=== PATIENT | female | born 1950 | race Caucasian/White ===

== ENCOUNTER 2019-05-02 17:26 | Emergency (ER) | payer MEDICARE, BC ==
[2019-05-02] MEDS ORDERED: Lidocaine 1% with EPINEPHrine 1:100,000 50 ML MDV SUBCUT ONE (18:21)
--- NOTE | 2019-05-02 18:22 | EDM.PDOC ---
ED HPI GENERAL MEDICAL PROBLEM - General Chief Complaint: Skin Complaint Stated Complaint: FELL HURT LEG Time Seen by Provider: 05/02/19 18:22 Source of Information: Reports: Patient, Other (friend) History Limitations: Reports: No Limitations - History of Present Illness INITIAL COMMENTS - FREE TEXT/NARRATIVE: Patient was walking up steps this afternoon around 4:30. Patient caught flip flop on edge of rock steps resulting in fall and laceration left anterior lei. Patient applied ice to area but believes she need sutures. Last tetanus shot was more than 5 years ago. Patient has contusion involving entire anterior lower legs. Superficial abrasion/contusion left anterior knee. Patient has had some pain with ambualtion but denies hip, hip or ankle pain. Patient states majority of pain is left anterior lei. Patient landed on her wrist with superficial contusions/abrasions with out pain with movement of wrist or elbows. - Related Data Allergies Allergy/AdvReac Type Severity Reaction Status Date / Time lisinopril Allergy Respiratory Verified 05/02/19 17:48 Distress sulfite Allergy Respiratory Verified 05/02/19 17:48 Distress Home Meds: Home Meds Fluticasone Furoate [Flonase Sensimist] 2 spray INH DAILY 05/02/19 [History] Losartan [Cozaar] 25 mg PO DAILY 05/02/19 [History] Metoprolol Tartrate 25 mg PO DAILY 05/02/19 [History] Past Medical History HEENT History: Reports: Hard of Hearing, Impaired Vision Cardiovascular History: Reports: High Cholesterol, Hypertension Gastrointestinal History: Reports: Inflammatory Bowel Disease [employer] History: Reports: Musculoskeletal History: Reports: Fracture - Past Surgical History GI Surgical History: Reports: Appendectomy, Cholecystectomy, Colonoscopy, Colostomy, Small Bowel Female Surgical History: Reports: Tubal Ligation Musculoskeletal Surgical History: Reports: Shoulder Surgery Social & Family History - Tobacco Use Smoking Status *Q: Never Smoker - Caffeine Use Caffeine Use: Reports: None - Recreational Drug Use Recreational Drug Use: No ED ROS GENERAL - Review of Systems Review Of Systems: ROS reveals no pertinent complaints other than HPI. ED EXAM, SKIN/RASH Exam: See Below Exam Limited By: No Limitations General Appearance: Alert, WD/WN, Anxious, Mild Distress Eye Exam: Bilateral Eye: EOMI, PERRL Ears: Hearing Grossly Normal Nose: Normal Inspection, Normal Mucosa Throat/Mouth: Normal Inspection, Normal Lips, Normal Voice, No Airway Compromise Head: Normocephalic Neck: Non-Tender, Full Range of Motion Respiratory/Chest: No Respiratory Distress, Lungs Clear, Normal Breath Sounds Cardiovascular: Normal Peripheral Pulses, Regular Rate, Rhythm Extremities: Normal Inspection (dilated veins bilateral legs wtih fairly this overlying skin. 4.5 cm laceration left anterior lei with skin tear noted. SQ fat noted in wound bed sutures needed due to depth of wound), Normal Range of Motion, Non-Tender, No Pedal Edema, Normal Capillary Refill Neurological: Alert, Oriented, CN II-XII Intact, Normal Cognition, Normal Gait, Normal Reflexes, No Motor/Sensory Deficits Psychiatric: Normal Affect, Normal Mood, Anxious (per normal per sister ) ED SKIN PROCEDURES - Laceration/Wound Repair Left Anterior Midline Leg Appearance: Subcutaneous Distal NVT: Neuro & Vascular Intact, No Tendon Injury Anesthetic Type: Local Local Anesthesia - Lidocaine (Xylocaine): 1% with EPI Local Anesthetic Volume: Other (6 cc) Skin Prep: Chlorhexidine (Hibiciens), Saline Saline Irrigation (cc's): 500 Exploration/Debridement/Repair: Wound Explored, In a Bloodless Field, No Foreign Material Found, Wound Margins Revised (nonviable tissue removed ) Closed with: Sutures Lac/Wound length In cm: 4.5 Suture Size: 5-0 # of Sutures: 8 Suture Type: Simple, Mattress Drain Placement: No Sterile Dressing Applied: Provider (tegaderm applied over woudn to approximate superfical skin layer) Tetanus Status Addressed: Yes Complications: No Complication Description: very thin skin with varicose veins resulting in bleeding. Pressure dressing and Gianni wrap applied. Course - Vital Signs Last Recorded V/S: Last Vital Signs Temp 37.0 C 05/02/19 17:50 Pulse 72 05/02/19 17:50 Resp 20 05/02/19 17:50 BP 183/85 H 05/02/19 17:50 Pulse Ox 97 05/02/19 17:50 - Orders/Labs/Meds Meds: Medications Discontinued Medications Generic Name Dose Route Start Last Admin Trade Name Freq PRN Reason Stop Dose Admin Lidocaine/Epinephrine 10 ml 05/02/19 18:21 05/02/19 19:21 Xylocaine 1% With Epinephrine 1:100,000 SUBCUT 05/02/19 18:22 10 ml ONETIME ONE Administration Departure - Departure Time of Disposition: 19:30 Disposition: Home, Self-Care 01 Clinical Impression: Laceration, Contusion - Discharge Information Instructions: Laceration Care, Adult, Varicose Veins, VIS, Diphtheria, Tetanus , and Pertussis (DTaP) - CDC (01/29/2007) Referrals: PCP,None [Primary Care Provider] - Forms: ED Department Discharge Additional Instructions: 1. Ibuprofen 600mg every 6 hrs with food for pain and swelling. 2. Tylenol 500-1000mg every 6 hrs as needed for mild pain if needed 3. Keep pressure dressing in place tonight. may remove tomorrow. 4. Leave Tegaderm (clear plastic bandage in place). 5, You may shower but limit exposure to Tegaderm. If falls off apply topical antibiotic ointment for prevention of infection. 6. Call PCP Friday am for wound check on Friday and possible suture removal before leaving trip in a week. - Problem List & Annotations (1) Contusion SNOMED Code(s): 167752513 Code(s): T14.8XXA - OTHER INJURY OF UNSPECIFIED BODY REGION, INITIAL ENCOUNTER Status: Acute Current Visit: Yes (2) Laceration SNOMED Code(s): 350457508 Code(s): FXZ4690 - Status: Acute Current Visit: Yes (3) Elevated blood pressure reading SNOMED Code(s): 32019643 Code(s): R03.0 - ELEVATED BLOOD-PRESSURE READING, W/O DIAGNOSIS OF HTN Status: Acute Current Visit: Yes
[2019-05-02] MEDS ORDERED: Diphtheria,Pertussis(Acell),Tetanus Vaccine 0.5 ML SDV IM ONE (19:36)
== END 2019-05-02 19:52 | disposition home or self-care (01) ==
LOC: JP.ED 17:26
DX: S81.812A Laceration without foreign body, left lower leg, initial encounter (principal); I10 Essential (primary) hypertension; Z23 Encounter for immunization; Z88.8 Allergy status to other drugs, medicaments and biological substances; Z79.899 Other long term (current) drug therapy; W10.8XXA Fall (on) (from) other stairs and steps, initial encounter
CPT/HCPCS: 12002; 90471; 90715; 99282